=== PATIENT | female | born 1995 | race Hispanic/Latino ===

== ENCOUNTER 2021-07-16 18:32 | Emergency (ER) | payer MEDICAID, OTHER, SELFPAY ==
[2021-07-16 19:10] LABS: Pregnancy Test - Urine (BHCG) POSITIVE (Negative); Pregu Control Background? CLEAR/WHITE (CLR/WHITE); Pregu Control Bar Appear? YES (CONTROL BAR)
[2021-07-16 19:11] LABS: Bilirubin Neg (Negative); Blood, Urine 250 (Negative); Clarity Slightly Cloudy (Clear); Glucose, Urine (Dipstick) Normal (Negative); Ketone, Urine Negative (Negative); Leukocyte 500 (Negative); Nitrite Negative (Negative); Protein, Urine (Dipstick) 15 mg/dl (Neg-Trace)
[2021-07-16 19:18] LABS: RBC/HPF 0-3 HPF (0-3)
[2021-07-16 19:19] LABS: Bacteria/HPF 1+ HPF (None Seen)
[2021-07-16 19:34] LABS: #Basophils 0.1 10x3/uL (0.0-0.2); #Eosinphils 0.9 10x3/uL (0.0-0.5); #Monocytes 0.6 10x3/uL (0.0-1.1); #Neutrophils 4.4 10x3/uL (1.5-8.4); %Basophils 0.8 % (0.0-2.0); %Eosinophils 11.1 % (0.0-6.0); %Lymphocytes 22.9 % (18.0-47.0); %Monocytes 8.2 % (0.0-10.0); %Neutrophils 56.6 % (40.0-75.0); Hemoglobin 11.6 g/dL (12.0-15.5); Mean Corpuscular HGB CONC 32.4 g/dL (32.0-36.0); Mean Corpuscular Hemoglobin 26.5 pg (27.0-33.0); Mean Corpuscular Volume 81.9 fl (81.6-98.3); Mean Platelet Volume 10.3 fl (7.4-10.4); Platelet Count 396 10x3/uL (150-450); RBC Distribution Width 14.3 % (11.5-14.5); Red Blood Cell (RBC) Count 4.37 10x6/uL (3.90-5.03); White Blood Cell (WBC) Count 7.7 10x3/uL (3.5-10.5)
[2021-07-16 19:47] LABS: ALT (SGPT) 15 U/L (8-55); AST (SGOT) 17 U/L (5-34); Albumin 4.3 g/dL (3.5-5.0); Alkaline Phosphatase 89 U/L (40-110); Anion Gap 12 mmol/L (10-20); BUN (Urea Nitrogen) 10 mg/dL (7.0-18.7); Bilirubin, Total 0.5 mg/dL (0.2-1.2); Calc. Creatinine Clearance 0 mL/min (70-130); Calcium 9.4 mg/dL (7.8-10.44); Carbon Dioxide 24 mmol/L (22-29); Chloride 104 mmol/L (98-107); Globulin 3.8 g/dL (2.4-3.5); Glucose 92 mg/dL (70-105); Potassium 3.7 mmol/L (3.5-5.1); Protein, Total 8.1 g/dL (6.0-8.3); Sodium 136 mmol/L (136-145)
== END 2021-07-16 22:02 | disposition home or self-care (01) ==
LOC: CSHERS 18:32
DX: O20.9 Hemorrhage in early pregnancy, unspecified (principal); O23.41 Unspecified infection of urinary tract in pregnancy, first trimester; Z3A.01 Less than 8 weeks gestation of pregnancy
CPT/HCPCS: 36415; 76856; 80053; 81003; 81015; 81025; 84702; 85025; 86900; 86901

== ENCOUNTER 2021-07-18 21:54 | Emergency (ER) | payer OTHER | END 2021-07-19 03:10 | disposition home or self-care (01) | LOC: CSHERS 21:54 | DX: O20.0 Threatened abortion (principal); Z3A.01 Less than 8 weeks gestation of pregnancy | CPT/HCPCS: 36415; 76856; 84702 ==

== ENCOUNTER 2022-11-17 19:22 | Emergency (ER) | payer OTHER ==
[2022-11-17 20:52] LABS: #Basophils 0.1 10x3/uL (0.0-0.2); #Eosinphils 0.1 10x3/uL (0.0-0.5); #Monocytes 0.7 10x3/uL (0.0-1.1); #Neutrophils 6.8 10x3/uL (1.5-8.4); %Basophils 0.5 % (0.0-2.0); %Eosinophils 0.7 % (0.0-6.0); %Lymphocytes 21.6 % (18.0-47.0); %Monocytes 6.8 % (0.0-10.0); Hematocrit 35.1 % (34.9-44.5); Hemoglobin 11.4 g/dL (12.0-15.5); Mean Corpuscular HGB CONC 32.5 g/dL (32.0-36.0); Mean Corpuscular Hemoglobin 25.9 pg (27.0-33.0); Mean Corpuscular Volume 79.6 fl (81.6-98.3); Platelet Count 412 10x3/uL (150-450); RBC Distribution Width 14.5 % (11.5-14.5); Red Blood Cell (RBC) Count 4.41 10x6/uL (3.90-5.03); White Blood Cell (WBC) Count 9.8 10x3/uL (3.5-10.5)
[2022-11-17 21:05] LABS: ALT (SGPT) 13 U/L (8-55); AST (SGOT) 12 U/L (5-34); Albumin 3.9 g/dL (3.5-5.0); Alkaline Phosphatase 67 U/L (40-110); Anion Gap 11 mmol/L (10-20); BUN (Urea Nitrogen) 7 mg/dL (7.0-18.7); Bilirubin, Total 0.2 mg/dL (0.2-1.2); Calc. Creatinine Clearance 0 mL/min (70-130); Carbon Dioxide 20 mmol/L (22-29); Chloride 107 mmol/L (98-107); Estimated GFR 127; Globulin 3.2 g/dL (2.4-3.5); Glucose 102 mg/dL (70-105); Potassium 3.7 mmol/L (3.5-5.1); Protein, Total 7.1 g/dL (6.0-8.3); Sodium 134 mmol/L (136-145)
[2022-11-17 22:47] LABS: Bilirubin Neg (Negative); Blood, Urine 10 (Negative); Clarity Clear (Clear); Glucose, Urine (Dipstick) Normal (Negative); Ketone, Urine Negative (Negative); Leukocyte 500 (Negative); Nitrite Negative (Negative); Protein, Urine (Dipstick) 15 mg/dl (Neg-Trace); Urobilinogen Normal mg/dL (Less than 2)
[2022-11-17 23:10] LABS: Bacteria/HPF 2+ HPF (None Seen); CAUTI Indications for Culture Pregnancy; RBC/HPF 0-3 HPF (0-3)
[2022-11-17 23:11] LABS: Urine Culture Reflex Yes Yes
== END 2022-11-17 23:18 | disposition home or self-care (01) ==
LOC: CSHERS 19:22
DX: O99.891 Other specified diseases and conditions complicating pregnancy (principal); R82.71 Bacteriuria; R10.9 Unspecified abdominal pain; Z3A.14 14 weeks gestation of pregnancy
CPT/HCPCS: 36415; 76815; 80053; 81001; 84702; 85025; 87086

== ENCOUNTER 2023-02-22 20:10 | Day surgery (SDC) | payer OTHER ==
[2023-02-22 20:36] VITALS: BMI 44.2
[2023-02-22] MEDS ORDERED: hydrALAZINE 20 MG/ML VIAL SLOW IVP PRN (21:46)
[2023-02-22 23:04] LABS: Bilirubin Neg (Negative); Blood, Urine Negative (Negative); Clarity Clear (Clear); Glucose, Urine (Dipstick) Normal (Negative); Ketone, Urine 50 mg/dL (Negative); Leukocyte 25 (Negative); Nitrite Negative (Negative); Protein, Urine (Dipstick) 30 mg/dl (Neg-Trace); Specific Gravity, Urine 1.025 (1.005-1.030)
[2023-02-22 23:19] LABS: Bacteria/HPF None Seen HPF (None Seen); CAUTI Indications for Culture Pregnancy; RBC/HPF None Seen HPF (0-3); WBC/HPF 0-3 HPF (0-3)
[2023-02-22 23:20] LABS: Urine Culture Reflex Yes Yes
== END 2023-02-22 23:59 | disposition home or self-care (01) ==
LOC: CSHLD/OP 20:10
PROVIDERS: ATTEND Family Medicine
DX: O99.891 Other specified diseases and conditions complicating pregnancy (principal); R10.9 Unspecified abdominal pain; R94.8 Abnormal results of function studies of other organs and systems; O99.810 Abnormal glucose complicating pregnancy; Z3A.28 28 weeks gestation of pregnancy
CPT/HCPCS: 76815; 81001; 87086

== ENCOUNTER 2023-03-19 03:00 | Day surgery (SDC) | payer OTHER ==
[2023-03-19] MEDS ORDERED: hydrALAZINE 20 MG/ML VIAL SLOW IVP PRN (03:16)
[2023-03-19 03:40] VITALS: BMI 44.6
== END 2023-03-19 04:48 | disposition home or self-care (01) ==
LOC: EEVIPCON 03:00 → CSHLD/OP 03:00
PROVIDERS: ATTEND Family Medicine
DX: O36.8130 Decreased fetal movements, third trimester, not applicable or unspecified (principal); O36.8330 Maternal care for abnormalities of the fetal heart rate or rhythm, third trimester, not applicable or unspecified; O99.213 Obesity complicating pregnancy, third trimester; E66.9 Obesity, unspecified; Z79.899 Other long term (current) drug therapy; Z3A.32 32 weeks gestation of pregnancy
CPT/HCPCS: 76819; 93005; 93010; 99282

== ENCOUNTER 2023-03-21 20:11 | Day surgery (SDC) | payer OTHER ==
[2023-03-21 20:38] VITALS: BMI 44.6
[2023-03-21] MEDS ORDERED: hydrALAZINE 20 MG/ML VIAL SLOW IVP PRN (20:58)
[2023-03-21] MEDS ORDERED: Lactated Ringer's 1,000 ML IV SCH (21:00)
[2023-03-21 22:09] LABS: Bilirubin Neg (Negative); Blood, Urine 10 (Negative); Clarity Clear (Clear); Glucose, Urine (Dipstick) Normal (Negative); Ketone, Urine 150 mg/dL (Negative); Leukocyte 25 (Negative); Nitrite Negative (Negative); Protein, Urine (Dipstick) 15 mg/dl (Neg-Trace); pH, Urine 6.5 (5.0-9.0)
[2023-03-21 22:23] LABS: Fetal Membranes Rupture No Membranes Rupture (No Rupture)
[2023-03-21 22:35] LABS: Bacteria/HPF Rare-Few HPF (None Seen); CAUTI Indications for Culture Pregnancy; RBC/HPF 0-3 HPF (0-3); WBC/HPF 0-3 HPF (0-3)
[2023-03-21 22:36] LABS: Urine Culture Reflex Yes Yes
== END 2023-03-21 23:15 | disposition home or self-care (01) ==
LOC: CSHLD/OP 20:11
PROVIDERS: ATTEND Family Medicine
DX: O26.893 Other specified pregnancy related conditions, third trimester (principal); O47.03 False labor before 37 completed weeks of gestation, third trimester; O23.593 Infection of other part of genital tract in pregnancy, third trimester; O99.283 Endocrine, nutritional and metabolic diseases complicating pregnancy, third trimester; E86.0 Dehydration; Z79.899 Other long term (current) drug therapy; Z3A.32 32 weeks gestation of pregnancy
CPT/HCPCS: 81001; 84112; 87086; 87480; 87510; 87660; 96360; 96361; 99285

== ENCOUNTER 2023-03-27 14:04 | Day surgery (SDC) | payer OTHER ==
[2023-03-27] MEDS ORDERED: hydrALAZINE 20 MG/ML VIAL SLOW IVP PRN (14:54)
[2023-03-27 15:48] LABS: Bilirubin Neg (Negative); Blood, Urine 10 (Negative); Clarity Clear (Clear); Glucose, Urine (Dipstick) Normal (Negative); Ketone, Urine 5 mg/dL (Negative); Leukocyte Negative (Negative); Nitrite Negative (Negative); Protein, Urine (Dipstick) 30 mg/dl (Neg-Trace); Specific Gravity, Urine 1.025 (1.005-1.030)
[2023-03-27 15:56] LABS: CAUTI Indications for Culture Pregnancy; Mucous/LPF 2+ LPF (<2+); RBC/HPF 0-3 HPF (0-3); Transitional Epithelial 0-3 HPF (None Seen); Yeast-Hyphae 1+ HPF (None Seen)
[2023-03-27 15:57] LABS: Bacteria/HPF 3+ HPF (None Seen)
[2023-03-27 15:59] LABS: Urine Culture Reflex Yes Yes
[2023-03-27] MEDS ORDERED: Fluconazole 100 MG TAB PO SCH (16:07)
== END 2023-03-27 17:06 | disposition home health service (06) ==
LOC: CSHLD/OP 14:04
PROVIDERS: ATTEND Family Medicine
DX: O23.593 Infection of other part of genital tract in pregnancy, third trimester (principal); B37.31 Acute candidiasis of vulva and vagina; Z3A.33 33 weeks gestation of pregnancy
CPT/HCPCS: 76815; 81001; 87086; 87480; 87510; 87660

== ENCOUNTER 2023-04-08 05:13 | Day surgery (SDC) | payer OTHER ==
[2023-04-08 05:28] VITALS: BMI 46.8
[2023-04-08] MEDS ORDERED: hydrALAZINE 20 MG/ML VIAL SLOW IVP PRN (05:52)
[2023-04-08] MEDS ORDERED: Sodium Chloride 0.9% 1,000 ML IV SCH (07:45)
[2023-04-08] MEDS ORDERED: cefTRIAXone\\ROCEPHIN 1 GM in Sodium Chloride 0.9% 100 ML IVPB SCH (08:00)
== END 2023-04-08 10:42 | disposition home or self-care (01) ==
LOC: CSHLD/OP 05:13
PROVIDERS: ATTEND Family Medicine
DX: O47.03 False labor before 37 completed weeks of gestation, third trimester (principal); O23.43 Unspecified infection of urinary tract in pregnancy, third trimester; N39.0 Urinary tract infection, site not specified; O99.513 Diseases of the respiratory system complicating pregnancy, third trimester; R06.02 Shortness of breath; Z79.899 Other long term (current) drug therapy; Z3A.35 35 weeks gestation of pregnancy; O99.891 Other specified diseases and conditions complicating pregnancy; R10.10 Upper abdominal pain, unspecified; R07.89 Other chest pain; I49.3 Ventricular premature depolarization
CPT/HCPCS: 71045; 80053; 81001; 83690; 83880; 84156; 84484; 85025; 87077; 87086; 93005; 96374; 99283; J0696; J3010; J3490; J7050; S0028

== ENCOUNTER 2023-04-12 14:58 | Inpatient (IN) | payer OTHER ==
[2023-04-12 15:25] VITALS: BMI 47.2
[2023-04-12 16:06] LABS: Creatinine, Urine 270.33 mg/dL (47-110)
[2023-04-12 16:43] LABS: #Basophils 0.1 10x3/uL (0.0-0.2); #Monocytes 0.8 10x3/uL (0.0-1.1); #Neutrophils 7.2 10x3/uL (1.5-8.4); %Basophils 0.5 % (0.0-2.0); %Eosinophils 0.3 % (0.0-6.0); %Lymphocytes 19.6 % (18.0-47.0); %Monocytes 7.5 % (0.0-10.0); %Neutrophils 71.7 % (40.0-75.0); Hematocrit 28.8 % (34.9-44.5); Hemoglobin 9.5 g/dL (12.0-15.5); Mean Corpuscular Hemoglobin 24.9 pg (27.0-33.0); Mean Corpuscular Volume 75.6 fl (81.6-98.3); Mean Platelet Volume 12.1 fl (7.4-10.4); Platelet Count 367 10x3/uL (150-450); RBC Distribution Width 14.9 % (11.5-14.5); Red Blood Cell (RBC) Count 3.81 10x6/uL (3.90-5.03)
[2023-04-12 17:05] LABS: ALT (SGPT) 21 U/L (8-55); AST (SGOT) 16 U/L (5-34); Albumin 3.2 g/dL (3.5-5.0); Alkaline Phosphatase 126 U/L (40-110); Anion Gap 13 mmol/L (10-20); BUN (Urea Nitrogen) 12 mg/dL (7.0-18.7); Bilirubin, Total 0.3 mg/dL (0.2-1.2); Calc. Creatinine Clearance 275 mL/min (70-130); Calcium 8.8 mg/dL (7.8-10.44); Carbon Dioxide 18 mmol/L (22-29); Chloride 108 mmol/L (98-107); Estimated GFR 126; Globulin 3.6 g/dL (2.4-3.5); Glucose 84 mg/dL (70-105); Potassium 3.9 mmol/L (3.5-5.1); Protein, Total 6.8 g/dL (6.0-8.3); Sodium 135 mmol/L (136-145)
[2023-04-12] MEDS: hydrALAZINE 20 MG/ML VIAL SLOW IVP PRN ×2 (20:20→21:22)
[2023-04-12] MEDS: Betamet Acet/Betamet Na Ph 30 MG/5 ML VIAL IM SCH (20:30)
[2023-04-12] MEDS ORDERED: Misoprostol 200 MCG TAB PR PRN (22:32)
[2023-04-12] MEDS ORDERED: Calcium Gluc 4.6 MEQ/10 ML (100 MG/ML) SLOW IVP PRN (22:32)
[2023-04-12] MEDS ORDERED: Bicitra 30 ML UDCUP PO PRN (22:32)
[2023-04-12] MEDS ORDERED: Ondansetron PF 4 MG/2 ML Vial IVP PRN (22:32)
[2023-04-12] MEDS ORDERED: Lorazepam 2 MG/ML VIAL SLOW IVP PRN (22:32)
[2023-04-12] MEDS ORDERED: Labetalol HCl 100 MG/20 ML VIAL SLOW IVP PRN ×2 (22:32)
[2023-04-12] MEDS ORDERED: Promethazine HCl 25 MG/ML VIAL IM PRN (22:32)
[2023-04-12] MEDS ORDERED: Famotidine/PF 20 mg/2ml Vial SLOW IVP PRN (22:32)
[2023-04-12] MEDS ORDERED: Diphenoxylate HCl/Atropine Tablet PO PRN (22:32)
[2023-04-12] MEDS ORDERED: Carboprost 250 MCG/ML AMP IM PRN (22:32)
[2023-04-12] MEDS ORDERED: hydrALAZINE 20 MG/ML VIAL SLOW IVP PRN (22:32)
[2023-04-12] MEDS ORDERED: Tranexamic Acid 1,000 MG/10 ML VIAL IVP PRN (22:32)
[2023-04-12] MEDS ORDERED: Lactated Ringer's 1,000 ML IV SCH (22:45)
[2023-04-12] MEDS ORDERED: CEFAZOLIN 3 GM in Sodium Chloride 0.9% 100 ML IVPB SCH (22:45)
[2023-04-12] MEDS ORDERED: Oxytocin 30 units/NS 500 ML 500 ML IV SCH (22:45)
[2023-04-13 00:23] LABS: HBSAg Index 0.23 S/CO (0-0.99); Hep B Surf Ag - L&D Non-Reactive S/CO (NonReactive); Syphilis Antibody Nonreactive (Nonreactive); Syphilis Antibody Index 0.06 S/CO (<1.00 Non-Reactive)
[2023-04-13] MEDS ORDERED: Magnesium Sulfate 20 gm/500 ml 4 GM/100 ML BAG IVPB ONE (05:50)
[2023-04-13] MEDS ORDERED: Magnesium Sulfate 20 gm/500 ml 20 GM/500 ML BAG IVPB SCH (06:15)
[2023-04-13] MEDS: Calcium Carbonate 500 MG ChewTAB PO PRN (07:29)
[2023-04-13] MEDS: Acetaminophen 500 MG TAB PO PRN (09:15)
[2023-04-13] MEDS: CEFAZOLIN 3 GM in Sodium Chloride 0.9% 100 ML IVPB SCH (12:34)
[2023-04-13] MEDS ORDERED: Ondansetron PF 4 MG/2 ML Vial IVP PRN ×3 (12:36→17:31)
[2023-04-13] MEDS ORDERED: fentaNYL 50 mcg/mL 1 mL Vial SLOW IVP PRN (12:36)
[2023-04-13] MEDS ORDERED: Ketorolac Tromethamine 30 MG (1 mL) VIAL IVP PRN (12:36)
[2023-04-13] MEDS ORDERED: Meperidine HCl/PF 25 MG (1 mL) VIAL SLOW IVP PRN (12:36)
[2023-04-13] MEDS ORDERED: Moisturizing Cream (Eucerin) 113 GM JAR TOP PRN (12:36)
[2023-04-13] MEDS ORDERED: diphenhydrAMINE 50 MG/ML VIAL IVP PRN (12:36)
[2023-04-13] MEDS ORDERED: Promethazine HCl 25 MG SUPP PR PRN (12:36)
[2023-04-13] MEDS ORDERED: Naloxone HCl 0.4 mg/ml Vial IV PRN (12:36)
[2023-04-13] MEDS ORDERED: Naloxone HCl 0.4 mg/ml Vial IVP PRN ×2 (12:36)
[2023-04-13] MEDS ORDERED: Promethazine HCl 25 MG/ML VIAL IM PRN ×2 (12:36→17:31)
[2023-04-13] MEDS ORDERED: Ketorolac Tromethamine 30 MG (1 mL) VIAL IVP SCH (12:45)
[2023-04-13] MEDS ORDERED: Communication Order-Pharmacy FS SCH (12:45)
[2023-04-13 13:52] LABS: Analyzer IN Cardio CS NICU; Critical Notified Whom: PAPPOS MD; RapidComm Collect By CBN
[2023-04-13] MEDS ORDERED: Misoprostol 200 MCG TAB PR PRN (17:31)
[2023-04-13] MEDS ORDERED: diphenhydrAMINE 25 MG CAP PO PRN (17:31)
[2023-04-13] MEDS ORDERED: Labetalol HCl 100 MG/20 ML VIAL SLOW IVP PRN (17:31)
[2023-04-13] MEDS ORDERED: Calcium Gluc 4.6 MEQ/10 ML (100 MG/ML) SLOW IVP PRN (17:31)
[2023-04-13] MEDS ORDERED: Bisacodyl 10 MG SUPP PR PRN (17:31)
[2023-04-13] MEDS ORDERED: hydrALAZINE 20 MG/ML VIAL SLOW IVP PRN ×2 (17:31)
[2023-04-13] MEDS ORDERED: Lanolin Ointment 7 GM TUBE TOP PRN (17:31)
[2023-04-13] MEDS: Ferrous Sulfate 325 MG TAB PO SCH (20:51)
[2023-04-13] MEDS: Docusate 100 MG CAP PO SCH (20:51)
[2023-04-13] MEDS: Ketorolac Tromethamine 30 MG (1 mL) VIAL IVP SCH (20:53)
[2023-04-14] MEDS ORDERED: Lorazepam 2 MG/ML VIAL SLOW IVP PRN (00:45)
[2023-04-14] MEDS ORDERED: Meperidine HCl/PF 25 MG (1 mL) VIAL IM PRN (00:45)
[2023-04-14] MEDS: Magnesium Sulfate 20 gm/500 ml 20 GM/500 ML BAG ONE ×3 (01:33→12:34)
[2023-04-14 04:14] LABS: Hematocrit 26.5 % (34.9-44.5); Hemoglobin 8.6 g/dL (12.0-15.5); Mean Corpuscular HGB CONC 32.5 g/dL (32.0-36.0); Mean Corpuscular Hemoglobin 24.6 pg (27.0-33.0); Mean Corpuscular Volume 75.7 fl (81.6-98.3); Mean Platelet Volume 11.7 fl (7.4-10.4); Platelet Count 369 10x3/uL (150-450); RBC Distribution Width 14.7 % (11.5-14.5); White Blood Cell (WBC) Count 21.2 10x3/uL (3.5-10.5)
[2023-04-14] MEDS: ePHEDrine Sulfate 50 MG/10 ML VIAL ONE (07:38)
[2023-04-14] MEDS: Dexamethasone 4 mg/ml Vial ONE ×2 (07:38→07:39)
[2023-04-14] MEDS: PHENYLEPHRINE-NS 100 MCG/ML 10 ML SYRINGE ONE ×2 (07:39→07:40)
[2023-04-14] MEDS: Ondansetron PF 4 MG/2 ML Vial ONE ×2 (07:39)
[2023-04-14] MEDS: Ketorolac Tromethamine 30 MG (1 mL) VIAL ONE (07:39)
[2023-04-14] MEDS: Oxytocin 10 UNITS/ML VIAL ONE (07:39)
[2023-04-14] MEDS: Phenylephrine 40 MG/NS 250 ML 250 ML ONE (07:39)
[2023-04-14] MEDS: Glycopyrrolate 0.2 MG/ML 5 ML SYRINGE ONE (07:39)
[2023-04-14] MEDS: diphenhydrAMINE 50 MG/ML VIAL ONE (07:40)
[2023-04-14] MEDS: Carboprost 250 MCG/ML AMP ONE (07:40)
[2023-04-14] MEDS: Morphine PF 10 MG/10 ML VIAL ONE (07:40)
[2023-04-14] MEDS: Erythromycin Base 0.5% Oint 1 GM TUBE ONE (07:42)
[2023-04-14] MEDS: Phytonadione Neonatal 1 MG/0.5 ML AMP ONE (07:43)
[2023-04-14] MEDS: Prenatal Vitamin 1 TAB PO SCH (08:09)
[2023-04-14] MEDS: Magnesium Sulfate 20 gm/500 ml 20 GM/500 ML BAG IVPB PRN (11:15)
[2023-04-14] MEDS: Labetalol HCl 100 MG TAB PO SCH (12:12)
[2023-04-14] MEDS: Labetalol HCl 100 MG/20 ML VIAL SLOW IVP PRN (12:29)
[2023-04-14] MEDS: Ibuprofen 800 MG TAB PO SCH (14:03)
[2023-04-14] MEDS: Boostrix 0.5 ML (Tdap) VIAL (>/=7 yrs of age) IM ONE (17:00)
[2023-04-14] MEDS: HYDROcodone/Acetaminophen 5/325 mg Tablet PO PRN (17:19)
[2023-04-15] MEDS ORDERED: hydrALAZINE 20 MG/ML VIAL SLOW IVP PRN (02:49)
[2023-04-15] MEDS: Labetalol HCl 100 MG TAB PO SCH (04:39)
[2023-04-15] MEDS: Simethicone Chewable 80 MG TAB PO PRN (05:04)
[2023-04-15] MEDS: HYDROcodone/Acetaminophen 5/325 mg Tablet PO PRN (05:05)
[2023-04-15] MEDS: hydrALAZINE 20 MG/ML VIAL ONE (13:21)
[2023-04-15] MEDS: Betamet Acet/Betamet Na Ph 30 MG/5 ML VIAL ONE (13:21)
[2023-04-15] MEDS: Magnesium Sulfate 20 gm/500 ml 20 GM/500 ML BAG ONE (13:21)
[2023-04-17 13:00] VITALS: TEMP 98.3
[2023-04-17 13:18] VITALS: BP 137/79
[2023-04-17] MEDS: NIFEdipine XL 30 MG ER.TAB PO SCH (14:09)
[2023-04-19 18:21] LABS: Analyzer IN Cardio CS NICU; Critical Notified Whom: PAPPO MD; RapidComm Collect By CBN; pH (Cord, venous) 6.954 (7.250-7.350)
== END 2023-04-17 16:20 | disposition home or self-care (01) | DRG 788 ==
LOC: CSHLD/OP 14:58 → CSHLD 18:48 → OBSVTOIN 22:33 → CSHPP 04-14 16:30
PROVIDERS: ADMIT Family Medicine; ATTEND Family Medicine
PROC: 10D00Z1 Extraction of Products of Conception, Low, Open Approach (ICD-10-PCS; principal; 2023-04-13)
DX: O14.14 Severe pre-eclampsia complicating childbirth (principal); Z3A.35 35 weeks gestation of pregnancy; Z37.0 Single live birth; O99.214 Obesity complicating childbirth; E66.01 Morbid (severe) obesity due to excess calories; O34.13 Maternal care for benign tumor of corpus uteri, third trimester; D25.9 Leiomyoma of uterus, unspecified
CPT/HCPCS: 36415; 51702; 76815; 76819; 80053; 82570; 82805; 84156; 85025; 85027; 86780; 86850; 86900; 86901; 87340; 93005; 93010; 99285; J0360; J1100; J1200; J1885; J2274; J2405; J2590; J3475; J3490